=== PATIENT | male | born 1975 | race Two or more races ===

== ENCOUNTER 2024-04-01 20:50 | Emergency (ER) | payer OTHER ==
[~2024-04-01] VITALS: Ht 193 cm; Wt 100.0 kg
[2024-04-02] MEDS: TETANUS-DIPTH-ACEL PERTUSSIS 0.5ML SYR Tdap IM ONE (02:31)
[2024-04-02 02:42] LABS: Urine Bacteria MANY /hpf (None Seen); Urine Blood 1+ /uL (Negative); Urine Clarity Clear (Clear); Urine Color Yellow (Yellow); Urine Hyaline Cast FEW /lpf (0 - 2); Urine Mucus FEW (None Seen); Urine Protein, UAD 2+ (Negative); Urine Specific Gravity 1.029 (1.001-1.035); Urine Urobilinogen 4 mg/dL (Negative); Urine WBC 7 /hpf (0 - 3)
[2024-04-02 02:46] LABS: Amphetamine Screen, Urine Neg (NEGATIVE); Barbiturate Scree,Urine Pos (NEGATIVE); Benzodiazephine Screen, Urine Neg (NEGATIVE); Cocaine Screen, Urine Neg (NEGATIVE)
[2024-04-02 02:47] LABS: Cannabinoid Screen, Urine Neg (NEGATIVE); Opiate Scree,Urine Neg (NEGATIVE); Phencyclidine Screen, Urine Neg (NEGATIVE)
[2024-04-02] MEDS: InsuLIN REG 1unit/0.01ml Soln (100units/ml) IV ONE ×3 (03:02→14:56)
[2024-04-02 03:10] VITALS: PULSE 113; RESP 18; O2SAT 98
[2024-04-02] MEDS: VANCOMYCIN 1GM/200ML 200 ML IV ONE (03:25)
[2024-04-02] MEDS: ACETAMINOPHEN 325 MG TAB PO ONE (03:27)
[2024-04-02 03:32] LABS: Basophils # (auto) 0 10 ^3/uL (0-0.2); Basophils % (auto) 0.2 % (0.0-2.0); Eosinophils # (auto) 0 10 ^3/uL (0-0.8); Hemoglobin 15.6 g/dL (13.5-17.5); Lymphocytes # (auto) 1.4 10 ^3/uL (0.4-5.4); Lymphocytes % (auto) 8.2 % (10.0-50.0); Mean Corpuscular Hemoglobin 34.4 pg (28.0-32.0); Mean Corpuscular Hgb Conc. 33.2 g/dL (32.0-36.0); Mean Corpuscular Volume 103.6 fL (80.0-100.0); Monocytes # (auto) 1.5 10 ^3/uL (0-1.3); Monocytes % (auto) 8.9 % (0.0-12.0); Neutrophils # (auto) 13.9 10 ^3/uL (1.6-8.6); Neutrophils % (auto) 82.7 % (37.0-80.0); Nucleated Red Blood Cells % 0.1 %; Red Blood Cells 4.54 10^6/uL (4.5-5.90); Red Cell Distribution Width 13.4 % (11.8-14.3); White Blood Cell 16.7 10^3/uL (4.4-10.8)
[2024-04-02 03:43] LABS: Alanine Aminotransferase 92 U/L (7-40); Albumin 4.3 g/dL (3.2-4.8); Alkaline Phosphatase 172 U/L (46-116); Anion Gap 10 (5-15); Aspartate Aminotransferase 106 U/L (13-40); BUN/Creatinine Ratio 9.2 (10.0-20.0); Blood Urea Nitrogen 12 mg/dL (9-23); Calcium 9.5 mg/dL (8.7-10.4); Carbon Dioxide 23 mmol/L (20-30); Chloride 95 mmol/L (98-107); Magnesium 1.8 mg/dL (1.6-2.6); Sodium 128 mmol/L (136-145)
[2024-04-02 03:44] LABS: Bilirubin, Total 0.9 mg/dL (0.2-1.0); Total Protein 8.1 g/dL (5.7-8.2)
[2024-04-02 03:45] LABS: INR 1.05 (0.9-1.15); Partial Thromboplastin Time 27.5 SEC (24.5-34.5); Prothrombin Time 11.1 sec (9.3-11.8)
[2024-04-02 03:47] LABS: Lactic Acid w/Reflex 2.3 mmol/L (0.4-2.0)
[2024-04-02 03:48] LABS: Glucose 454 mg/dL (74-106)
[2024-04-02 03:59] LABS: Blood Alcohol < 3.0 mg/dL (<10)
[2024-04-02] MEDS: PIPERACILLIN-TAZOB 3.375GM 100 ML IV SCH (05:44)
[2024-04-02] MEDS ORDERED: VANCOMYCIN PER PHARMACY 0 MG IV SCH (08:15)
[2024-04-02] MEDS ORDERED: VANCOMYCIN 1GM/200ML 200 ML IV SCH (10:00)
[2024-04-02 11:00] VITALS: PULSE 98; RESP 20; O2SAT 93
[2024-04-02] MEDS: MORPHINE SULFATE 4 MG/ML SYR/VIAL IV ONE (12:19)
[2024-04-02] MEDS: ONDANSETRON HCL 4 MG/2 ML VIAL IV ONE (12:19)
[2024-04-02] MEDS ORDERED: VANCOMYCIN 750mg/150ml 150 ML IV SCH (15:00)
[2024-04-02 15:13] VITALS: BP 130/80; PULSE 105; RESP 20; TEMP 97.7; O2SAT 93
== END 2024-04-02 15:22 | disposition short-term general hospital (02) ==
LOC: ER 20:50
DX: N50.812 Left testicular pain (principal); N50.811 Right testicular pain; L98.9 Disorder of the skin and subcutaneous tissue, unspecified; E11.9 Type 2 diabetes mellitus without complications
CPT/HCPCS: 36415; 73630; 76870; 80053; 80307; 80320; 81001; 83605; 83735; 84484; 85025; 85610; 85730; 87040; 87086; 90471; 90715; 96365; 96366; 96367; 96375; 96376; 99285; J1815; J2270; J2405; J2543; J3370

== ENCOUNTER 2025-05-22 11:48 | Emergency (ER) | payer OTHER, MEDICAID ==
[~2025-05-22] VITALS: Ht 193 cm; Wt 150.0 kg
[2025-05-22 12:15] VITALS: PULSE 109; RESP 20; O2SAT 93
--- NOTE | 2025-05-22 12:26 | ED.PDOC ---
HPI (NEURO) HPI Comments HPI: 49 year old male presents to the emergency department with a chief complaint of seizures onset today (05/22/25). Per EMS, patient was at a Day Care ceremony, was standing, began experiencing seizure, was held my siblings, assisted to the ground. Upon EMS arrival, blood glucose was 61, oral glucose was given BS was 62, 2nd dose oral glucose was given in route to ED, BS was 51. Patient had 40 units insulin this morning, did not have breakfast. PMHx DM, HTN, seizures. Denies headache, dizziness, nausea, vomiting, diarrhea, head injury, chest pain, shortness of breath. No other symptoms or modifying factors present at this time. Patient has history of seizure disorder and also on seizure medications. States compliance with his medications. Initial Vitals BP: 119/62 HR: 109 RR:20 O2 Sat: 93% Temp: Past Medical history: HTN, DM, seizure Past Surgical history: Denies Medications: Metformin, insulin, Phenobarbitone Social History: Denies smoking, ETOH, and drug use. Allergies: NKDA HPI: Poor Historian. REVIEW OF SYSTEMS: CONSTITUTIONAL: Denies acute: fever, diaphoresis, chills, HEAD: Denies acute: headache, photophobia Eyes: Denies acute: Double vision, vision loss, eye pain, eye discharge. EARS: Denies acute: tinnitus, hearing loss, ear discharge, ear pain, THROAT: Denies acute: sore throat, swelling, difficulty swallowing , pain with swallowing, change in voice. NECK: Denies acute: neck pain, neck swelling, stiff neck. HEART: Denies acute : chest pain, palpitations, LUNGS: Denies acute: SOB, wheezing, cough, hemoptysis ABDOMEN: Denies acute: abdominal pain, Nausea, Vomiting, diarrhea, melena , hematemesis, hematochezia SKIN: Denies acute: rash, redness, lesions, itchiness. EXTREMITIES: Denies acute: calf pain, numbness, tingling, weakness, denies pain in extremity. Denies acute: Low back pain. Neuro: Denies acute: focal neurological deficit, motor or sensory focal neurological deficit, confusion, dizziness, change in mental status, loss of bowel or bladder function, cauda equina like symptoms. : Denies acute: dysuria, hematuria, flank pain, increase in urinary frequency. PSYCH: Denies acute: hallucination, suicidal ideation, homicidal ideation. PHYSICAL EXAM: General: -----mild---acute distress, awake and alert. Head: normocephalic, atraumatic. Neck: supple, trachea is midline, no swelling. Throat: Normal phonation. Eyes:, no erythema, no purulent discharge, no proptosis, no icterus. Heart: regular rate, regular rhythm, no significant murmur appreciated. Lungs: no apparent respiratory distress, Able to speak in full sentences. No wheezing, no rhonchi, no crackles. No stridors Clear to auscultation bilaterally. Abdomen: non tender to palpation, non distended, soft, no guarding, no rebound, + bowel sounds. Obese Neuro: Awake, Alert, oriented to name, self, situation, follows commands GCS=15. Speech is normal. Skin: no petechia, no purpura, no cyanosis, non-pale, not jaundice. Lower extremities: --no - Pitting edema no deformity, no focal swelling, no calf TTP. Makes eye contact. moves all four extremities. Face: no apparent facial droop. PERRLA, EOM-I CN 2-12 are grossly intact, Pedal pulses are palpable. No nystagmus. No nuchal rigidity, Kernig's sign, Brudzinski's sign, no meningeal signs. ED COURSE: DISCLAIMER: This medical document was created using an electronic medical record system with voice recognition software and computerized dictation system. Although this document has been carefully reviewed, there might still be some phonetic and typographical errors. Occasional wrong-word or "sound-alike" substitutions may have occurred due to the inherent limitations of voice recognition software. These areas are purely typographical due to imperfections of the software programs and do not reflect any compromise in the patient's medical care. Please read the chart carefully and recognize, using context, where these substitutions have occurred. Chief Complaint: Hypoglycemia Time Seen by MD: 12:00 Reviewed Notes: Medications, Allergies Information Source: Patient, Emergency Med Personnel Mode of Arrival: Wheelchair Severity: Moderate Timing: Hours Duration: Since onset Prehospital treatment: Other (oral glucose) Seizure Quality: Tonic-clonic Seizure Location: Generalized Circumstances: Spontaneous Symptoms: None Before: Normal During: Awake After: Normal Mentation History of: DM, Hypertension, Seizure Disorder Modifying factors: Nothing Past Medical History PAST MEDICAL HISTORY: DM, HTN, Seizures Surgical History: Denies all surgeries Family History Family History: Reviewed,noncontributory to illness, No family hx of Cancer, No family hx of DM, No family hx of Heart sreedhar, No family hx of HTN, No family hx ofKidney sreedhar, No family hx of Liver sreedhar, No family hx of Lung sreedhar, No family hx of Stroke Social History Smoker: Non-Smoker Alcohol: Denies ETOH Use Drugs: Denies Drug Use Lives In: Home Was a procedure done? Was a procedure done?: No X-Ray, Labs, Meds, VS Vital Signs Date Time Temp Pulse Resp B/P (MAP) Pulse Ox O2 Delivery O2 Flow Rate FiO2 05/22/25 16:00 98.5 72 14 111/69 (83) 93 98.5 05/22/25 13:47 83 05/22/25 12:15 109 20 119/62 (81) 93 05/22/25 12:15 109 20 93 Room Air* 0 21 05/22/25 11:58 99.8 114 16 142/84 (103) 97 99.8 Lab Test 05/22/25 15:12 05/22/25 15:09 05/22/25 13:14 05/22/25 13:08 Range/Units POC Glucose 124 H 155 H 70-106 mg/dl Lactic Acid Level 2.0 0.4-2.0 mmol/L Troponin I High Sensitivity 15 8 </=54 ng/L Test 05/22/25 13:00 05/22/25 12:20 05/22/25 12:12 05/22/25 12:01 Range/Units Urine Color Light-yellow Yellow Urine Clarity Clear Clear Urine pH 6.0 5.0-9.0 Urine Specific [place] 1.022 1.001-1.035 Urine Protein Negative Negative Urine Ketones Negative Negative Urine Blood Negative Negative /uL Urine Nitrite Negative Negative Urine Bilirubin Negative Negative Urine Urobilinogen Normal Negative mg/dL Urine Leukocyte Esterase Trace Negative /uL Urine RBC 1 0 - 3 /hpf Urine Microscopic WBC 5 H 0-3 /HPF Urine Squamous Epithelial Cells Few <5 /hpf Urine Bacteria Few H None Seen /hpf Urine Hyaline Casts Few 0 - 2 /lpf Urine Mucus Few None Seen Urine Glucose 2+ H Normal mg/dL Lactic Acid Level 3.7 *H 0.4-2.0 mmol/L White Blood Count 6.8 4.4-10.8 10^3/uL Red Blood Count 4.91 4.5-5.90 10^6/uL Hemoglobin 17.2 13.5-17.5 g/dL Hematocrit 51.5 41.0-53.0 % Mean Corpuscular Volume 104.9 H 80.0-100.0 fL Mean Corpuscular Hemoglobin 35.1 H 28.0-32.0 pg Mean Corpuscular Hemoglobin Concent 33.5 32.0-36.0 g/dL Red Cell Distribution Width 13.6 11.8-14.3 % Platelet Count 243 140-450 10^3/uL Mean Platelet Volume 8.1 6.9-10.8 fL Neutrophils (%) (Auto) 49.0 37.0-80.0 % Lymphocytes (%) (Auto) 37.0 10.0-50.0 % Monocytes (%) (Auto) 11.2 0.0-12.0 % Eosinophils (%) (Auto) 2.3 0.0-7.0 % Basophils (%) (Auto) 0.5 0.0-2.0 % Neutrophils # (Auto) 3.4 1.6-8.6 10 ^3/uL Lymphocytes # (Auto) 2.5 0.4-5.4 10 ^3/uL Monocytes # (Auto) 0.8 0-1.3 10 ^3/uL Eosinophils # (Auto) 0.2 0-0.8 10 ^3/uL Basophils # (Auto) 0 0-0.2 10 ^3/uL Nucleated Red Blood Cells 0.2 % Sodium Level 142 136-145 mmol/L Potassium Level 3.9 3.5-5.1 mmol/L Chloride Level 109 H 98-107 mmol/L Carbon Dioxide Level 24 20-31 mmol/L Anion Gap 9 5-15 Blood Urea Nitrogen 15 9-23 mg/dL Creatinine 1.14 0.700-1.30 mg/dL Glomerular Filtration Rate Calc 78 >90 mL/min BUN/Creatinine Ratio 13.2 10.0-20.0 Serum Glucose 55 L 74-106 mg/dL Calcium Level 9.4 8.7-10.4 mg/dL Magnesium Level 2.1 1.6-2.6 mg/dL Total Bilirubin 0.3 0.2-1.0 mg/dL Aspartate Amino Transferase (AST) 31 13-40 U/L Alanine Aminotransferase (ALT) 29 7-40 U/L Alkaline Phosphatase 97 46-116 U/L Troponin I High Sensitivity 3 L </=54 ng/L Total Protein 7.6 5.7-8.2 g/dL Albumin 4.3 3.2-4.8 g/dL POC Glucose 53 L 70-106 mg/dl Current Medications Medications (Trade) Dose Ordered Sig/Batool Route Start Time Stop Time Status Last Admin Dextrose 50 ml ONCE ONCE IV 05/22/25 12:15 05/22/25 12:16 DC 05/22/25 12:31 Sodium Chloride 1,000 ml @ 1,000 mls/hr Q1H ONCE IV 05/22/25 12:15 05/22/25 13:14 DC 05/22/25 12:32 [place] [id number] Ph: [phone] DIAGNOSTIC IMAGING Diagnostic Imaging Report : [id number] Signed PATIENT: JAMISON HERNANDEZ ACCT: [id number] UNIT: [id number] : 1975 LOC: ER ROOM / BED: / AGE / SEX: 49 / M ADM STATUS: REG ER SERVICE 1203 ORDERING PHYSICIAN: MICAH RIVERA DO PROCEDURE(s): CXRP - CHEST PORTABLE REASON: seizure ORDER NUMBER(s): [id number], ACCESSION NUMBER(s): [id number] XY CHEST PORTABLE, HISTORY: seizure COMPARISON: None None TECHNICAL DATA: 1 view of the chest was obtained. FINDINGS: Lines and tubes: None Cardiomediastinal silhouette: normal Pulmonary vasculature: normal Lung expansion: normal Lung airspace: normal Lung interstitium: normal Pleura: normal Pneumothorax: no Bones: Unremarkable Other: no IMPRESSION: No acute intrathoracic abnormality. ATED BY: ABELINO CHIU MD DICTATED DATE/TIME: 05/22/25 1234 SIGNED BY: ABELINO CHIU MD SIGNED DATE/TIME: 05/22/25 1234 CC: Time of 1ST Reevaluation: 12:30 Reevaluation 1ST: Unchanged Time of 2ND Reevaluation: 16:49 (Still awaiting UA) Patient Education/Counseling: Diagnosis, Treatment Family Education/Counseling: No Family Present Departure 1 Departure Time of Disposition: 17:39 Impression: Primary Impression: Breakthrough seizure Additional Impressions: Hypoglycemic episode in patient with diabetes mellitus Seizure due to hypoglycemia Disposition: 01 HOME / SELF CARE / HOMELESS Condition: Stable Additional Instructions: Additional instructions: You MUST follow-up with your primary care/family doctor in 1 to 2 days. If you are unable to see your primary care/family doctor, please return to our emergency room for re-assessment and re-evaluation in 1 to 2 days. Return to the emergency room here in our facility or to the nearest ER [facility] if your symptoms change or worsen. CONSULTATIONS: you MUST Follow-up for consultation as soon as possible with: -neurology and cold header in 1-2 days. Please call for appointment. You MUST call the consultants office yourself to make an appointment. You may need to arrange that through your insurance and/or your primary/family doctor. If you are unable to see the image consultant in 1 to 2 days, you must return to our emergency room (or any other ER of your choice) for re-assessment and re- evaluation. Adequate fluid hydration. Monitoring blood sugar at home closely. e-Prescriptions Nitrofurantoin Monohydrate Mac (Macrobid) 100 Mg Cap 100 MG PO BID for 7 Days, #14 CAP Prov: MICAH RIVERA DO 05/22/25 Discharged With: Self Critical Care Note Critical Care Time?: No I personally scribed for MICAH RIVERA DO ([email or web address]) on 05/22/25 at 12:26. Electronically submitted by Veronica Estrella ([email or web address]). I personally scribed for MICAH RIVERA DO ([email or web address]) on 05/22/25 at 12:43. Electronically submitted by Veronica Estrella ([email or web address]). MICAH RIVERA DO May 22, 2025 12:26
[2025-05-22] MEDS: DEXTROSE (50%) 50ML SYRG IV ONE (12:31)
[2025-05-22] MEDS: SODIUM CHLORIDE 0.9% 1,000 ML IV ONE (12:32)
--- NOTE | 2025-05-22 12:36 | DVH ---
XY CHEST PORTABLE, HISTORY: seizure COMPARISON: None None TECHNICAL DATA: 1 view of the chest was obtained. FINDINGS: Lines and tubes: None Cardiomediastinal silhouette: normal Pulmonary vasculature: normal Lung expansion: normal Lung airspace: normal Lung interstitium: normal Pleura: normal Pneumothorax: no Bones: Unremarkable Other: no IMPRESSION: No acute intrathoracic abnormality.
[2025-05-22 12:47] LABS: Hemoglobin 17.2 g/dL (13.5-17.5)
[2025-05-22 12:50] LABS: Hematocrit 51.5 % (41.0-53.0); Mean Corpuscular Hemoglobin 35.1 pg (28.0-32.0); Mean Corpuscular Volume 104.9 fL (80.0-100.0); Nucleated Red Blood Cells % 0.2 %
[2025-05-22 13:05] LABS: Lactic Acid w/Reflex 3.7 mmol/L (0.4-2.0)
[2025-05-22 13:06] LABS: Alanine Aminotransferase 29 U/L (7-40); Albumin 4.3 g/dL (3.2-4.8); Alkaline Phosphatase 97 U/L (46-116); Anion Gap 9 (5-15); BUN/Creatinine Ratio 13.2 (10.0-20.0); Bilirubin, Total 0.3 mg/dL (0.2-1.0); Blood Urea Nitrogen 15 mg/dL (9-23); Calcium 9.4 mg/dL (8.7-10.4); Carbon Dioxide 24 mmol/L (20-31); Magnesium 2.1 mg/dL (1.6-2.6); Potassium 3.9 mmol/L (3.5-5.1); Sodium 142 mmol/L (136-145); Total Protein 7.6 g/dL (5.7-8.2)
[2025-05-22 13:09] LABS: Chloride 109 mmol/L (98-107); Glucose 55 mg/dL (74-106)
[2025-05-22 16:00] VITALS: TEMP 98.5
[2025-05-22 16:57] LABS: Urine Protein, UAD Negative (Negative)
[2025-05-22] MEDS ORDERED: NITR-87 PO (17:41)
[2025-05-22 18:00] VITALS: BP 149/80; PULSE 71; RESP 14; O2SAT 93
--- NOTE | 2025-05-25 08:07 | ECG ---
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
== END 2025-05-22 18:25 | disposition home or self-care (01) ==
LOC: EDBD 11:48 → ER 11:48
DX: G40.909 Epilepsy, unspecified, not intractable, without status epilepticus (principal); E11.649 Type 2 diabetes mellitus with hypoglycemia without coma; I10 Essential (primary) hypertension
CPT/HCPCS: 36415; 71045; 80053; 81001; 82947; 83605; 83735; 84484; 85025; 93005; 96361; 96374; 99285; J7030; J7042; 82962

== ENCOUNTER 2025-08-20 14:07 | Emergency (ER) | payer MEDICAID, OTHER ==
[~2025-08-20] VITALS: Ht 177.8 cm; Wt 109.0 kg
[~2025-08-20 14:07] MED LIST: NITR-87 PO
--- NOTE | 2025-08-20 14:23 | ED.PDOC ---
History of Present Illness HPI Comments 50 y/o M, BIBA, with PMHx of DM ,HTN, and seizures presents to the ED for CC of s/p seizure. EMS reports, patient is coming from home where he had a witnessed seizure by family. Per EMS, family comments that patient has been non-complaint with all medications. Upon arrival to the ED, patient is A&Ox4 and all VSS. Patient denies nausea, vomiting, headache, incontinence, or oral trauma. Time Seen by MD: 14:15 Primary Care Provider: UNKNOWN Reviewed Notes: Nurses Notes, Operations Forester Notes, Medications, Allergies Allergies: Coded Allergies: Gabapentin (Verified Allergy, Unknown, 05/22/25) Home Meds Active Scripts Nitrofurantoin Monohydrate Mac (Macrobid) 100 Mg Cap, 100 MG PO BID for 7 Days, #14 CAP Prov:MICAH RIVERA DO 05/22/25 Information Source: Patient, Emergency Med Personnel Mode of Arrival: EMS Severity: Moderate Timing: Minutes Duration: Minutes Prehospital treatment: None Past Medical History PAST MEDICAL HISTORY: DM, HTN, Seizures Surgical History: Denies all surgeries Family History Family History: Reviewed,noncontributory to illness, No family hx of Cancer, No family hx of DM, No family hx of Heart sreedhar, No family hx of HTN, No family hx ofKidney sreedhar, No family hx of Liver sreedhar, No family hx of Lung sreedhar, No family hx of Stroke Social History Smoker: Non-Smoker Alcohol: Denies ETOH Use Drugs: Denies Drug Use Lives In: Home Constitutional: denies: chills, diaphoresis, fatigue, fever, malaise, sweats, weakness, others EENTM: denies: blurred vision, double vision, ear bleeding, ear discharge, ear drainage, ear pain, ear ringing, eye pain, eye redness, hearing loss, mouth pain, mouth swelling, nasal discharge, nose bleeding, nose congestion, nose pain, photophobia, tearing, throat pain, throat swelling, voice changes, others Respiratory: denies: cough, hemoptysis, orthopnea, SOB at rest, shortness of breath, SOB with excertion, stridor, wheezing, others Cardiovascular: denies: chest pain, dizzy spells, diaphoresis, Dyspnea on exertion, edema, irregular heart beat, left arm pain, lightheadedness, palpitations, PND, syncope, others Gastrointestinal: denies: abdomen distended, abdominal pain, blood streaked bowels, constipated, diarrhea, dysphagia, difficulty swallowing, hematemesis, melena, nausea, poor appetite, poor fluid intake, rectal bleeding, rectal pain, vomiting, others Genitourinary: denies: burning, dysuria, flank pain, frequency, hematuria, incontinence, penile discharge, penile sore, pain, testicle pain, testicle swelling, urgency, others Neurological: reports: seizure; denies: dizziness, fainting, headache, left sided numbness, left sided weakness, numbness, paresthesia, pre-existing deficit, right sided numbness, right sided weakness, speech problems, tingling, tremors, weakness, others Musculoskeletal: denies: back pain, gout, joint pain, joint swelling, muscle pain, muscle stiffness, neck pain, others Integumetry: denies: bruises, change in color, change in hair/nails, dryness, laceration, lesions, lumps, rash, wounds, others Allergic/Immunocompromised: denies: Difficulty Healing, Frequent Infections, Hives, Itching, others Hematologic/Lymphatic: denies: anemia, blood clots, easy bleeding, easy bruising, swollen glands, others Endocrine: denies: excessive hunger, excessive sweating, excessive thirst, excessive urination, flushing, intolerance to cold, intolerance to heat, unexplained weight gain, unexplained weight loss, others Psychiatric: denies: anxiety, bipolar disorder, depression, hopeless, panic disorder, schizophrenia, sleepless, suicidal, others All Other Systems: Reviewed and Negative Physical Exam General Appearance: No Apparent Distress, Obese HEENT: Normal ENT Inspection, Pharynx Normal Neck: Full Range of Motion, Non-Tender, Normal, Normal Inspection Respiratory: Chest Non-Tender, Lungs Clear, No Accessory Muscle Use, No Respiratory Distress, Normal Breath Sounds Cardiovascular: No Edema, No Murmur, No Gallop, Normal Peripheral Pulses, Regular Rate/Rhythm Breast Exam: Deferred Gastrointestinal: No Organomegaly, Non Tender, No Pulsatile Mass, Normal Bowel Sounds, Soft Genitalia: Deferred Pelvic: Deferred Rectal: Deferred Extremities: No calf tenderness, Normal capillary refill, Normal inspection, Normal range of motion, Non-tender, No pedal edema Musculoskeletal : Apperance: Normal Neurologic: Alert, clinical research scientist II-XII nml as Tested, No Motor Deficits, Normal Affect, Normal Mood, No Sensory Deficits Cerebellar Function: Normal Reflexes: Normal Skin: Dry, Normal Color, Warm Lymphatic: No Adenopathy Was a procedure done? Was a procedure done?: No Differential Dx Considerations may include: epilepsy breakthrough, epilepsy status, medical non-compliance X-Ray, Labs, Meds, VS Vital Signs Date Time Temp Pulse Resp B/P (MAP) Pulse Ox O2 Delivery O2 Flow Rate FiO2 08/20/25 17:16 67 18 97 Room Air* 0 21 08/20/25 17:12 97.6 79 18 127/83 (98) 97 97.6 08/20/25 14:13 98.8 104 16 135/88 96 98.8 Lab Test 08/20/25 14:38 Range/Units White Blood Count 8.8 4.4-10.8 10^3/uL Red Blood Count 5.20 4.5-5.90 10^6/uL Hemoglobin 18.3 H 13.5-17.5 g/dL Hematocrit 55.3 H 41.0-53.0 % Mean Corpuscular Volume 106.3 H 80.0-100.0 fL Mean Corpuscular Hemoglobin 35.3 H 28.0-32.0 pg Mean Corpuscular Hemoglobin Concent 33.2 32.0-36.0 g/dL Red Cell Distribution Width 13.6 11.8-14.3 % Platelet Count 301 140-450 10^3/uL Mean Platelet Volume 8.5 6.9-10.8 fL Neutrophils (%) (Auto) 65.4 37.0-80.0 % Lymphocytes (%) (Auto) 24.8 10.0-50.0 % Monocytes (%) (Auto) 6.9 0.0-12.0 % Eosinophils (%) (Auto) 2.4 0.0-7.0 % Basophils (%) (Auto) 0.5 0.0-2.0 % Neutrophils # (Auto) 5.7 1.6-8.6 10 ^3/uL Lymphocytes # (Auto) 2.2 0.4-5.4 10 ^3/uL Monocytes # (Auto) 0.6 0-1.3 10 ^3/uL Eosinophils # (Auto) 0.2 0-0.8 10 ^3/uL Basophils # (Auto) 0 0-0.2 10 ^3/uL Nucleated Red Blood Cells 0.2 % Sodium Level 137 136-145 mmol/L Potassium Level 4.7 3.5-5.1 mmol/L Chloride Level 99 98-107 mmol/L Carbon Dioxide Level 22 20-31 mmol/L Anion Gap 16 H 5-15 Blood Urea Nitrogen 11 9-23 mg/dL Creatinine 1.41 H 0.700-1.30 mg/dL Glomerular Filtration Rate Calc 60 >90 mL/min BUN/Creatinine Ratio 7.8 L 10.0-20.0 Serum Glucose 409 *H 74-106 mg/dL Calcium Level 9.4 8.7-10.4 mg/dL Troponin I High Sensitivity 3 L </=54 ng/L Current Medications Medications (Trade) Dose Ordered Sig/Batool Route Start Time Stop Time Status Last Admin Levetiracetam 100 ml @ 400 mls/hr ONCE ONCE IV 08/20/25 14:30 08/20/25 14:44 DC 08/20/25 14:30 Time of 1ST Reevaluation: 14:45 Reevaluation 1ST: Unchanged Patient Education/Counseling: Diagnosis, Treatment Family Education/Counseling: No Family Present SEPSIS Sepsis Screen Physician Orders Electrocardigram (08/20/25 14:21) Chest Portable (08/20/25 14:22) Urinalysis (08/20/25 14:22) Insulin R (Human) (Insulin R) (08/20/25 18:00) Vital Signs Date Time Temp Pulse Resp B/P (MAP) Pulse Ox O2 Delivery O2 Flow Rate FiO2 08/20/25 17:16 67 18 97 Room Air* 0 21 08/20/25 17:12 97.6 79 18 127/83 (98) 97 97.6 08/20/25 14:13 98.8 104 16 135/88 96 98.8 Laboratory Tests Test 08/20/25 14:38 White Blood Count 8.8 10^3/uL (4.4-10.8) Medications Medications Dose Ordered Sig/Batool Route Start Time Stop Time Status Last Admin Dose Admin Levetiracetam 100 ml @ 400 mls/hr ONCE ONCE IV 08/20/25 14:30 08/20/25 14:44 DC 08/20/25 14:30 Departure 1 Departure Time of Disposition: 17:52 (Patient likely with a breakthrough seizure. We will discharge patient home with outpatient follow up) Impression: Primary Impression: Breakthrough seizure Disposition: HOME / SELF CARE / HOMELESS Condition: Stable Additional Instructions: You had a breakthrough seizure today. It is important to take your seizure medication. You should stay well rested and well hydrated. You should follow up with your regular doctor within 1 week. If your symptoms worsen or you have any other concerns then please return to the emergency room. Discharged With: Self Critical Care Note Critical Care Time?: No Stability Stability form required: No Heart Score Heart Score: Heart Score Response (Comments) Value History N/A 0 EKG N/A 0 Age N/A 0 Risk Factors N/A 0 Troponin N/A 0 Total 0 I personally scribed for CIARA WALKER MD ([email or web address]) on 08/20/25 at 14:23. Electronically submitted by Kristina Young ([email or web address]). CIARA WALKER MD Aug 20, 2025 14:23
[2025-08-20] MEDS: levETIRAcetam 1000 mg/100ml 100 ML IV ONE (14:30)
[2025-08-20 14:50] LABS: Hematocrit 55.3 % (41.0-53.0); Hemoglobin 18.3 g/dL (13.5-17.5); Mean Corpuscular Hemoglobin 35.3 pg (28.0-32.0); Mean Corpuscular Volume 106.3 fL (80.0-100.0); Nucleated Red Blood Cells % 0.2 %
[2025-08-20 15:00] LABS: Chloride 99 mmol/L (98-107); Potassium 4.7 mmol/L (3.5-5.1); Sodium 137 mmol/L (136-145)
[2025-08-20 15:01] LABS: Anion Gap 16 (5-15); Carbon Dioxide 22 mmol/L (20-31)
[2025-08-20 15:02] LABS: Calcium 9.4 mg/dL (8.7-10.4)
[2025-08-20 15:06] LABS: BUN/Creatinine Ratio 7.8 (10.0-20.0); Blood Urea Nitrogen 11 mg/dL (9-23)
--- NOTE | 2025-08-20 15:09 | DVH ---
CHEST RADIOGRAPH Indication: weakness Technique: Single frontal view of the chest was obtained Comparison: XY CHEST PORTABLE on DOS: 05/22/25 FINDINGS: Lines and Tubes: None Lungs: No focal consolidation. Pleura: No effusion. No pneumothorax. Cardiomediastinal contours: Unremarkable Bones: No acute osseous abnormality. IMPRESSION: 1. No acute cardiopulmonary disease. 2. No significant change from 05/22/2025
[2025-08-20 15:11] LABS: Glucose 409 mg/dL (74-106)
[2025-08-20 17:16] VITALS: PULSE 67; RESP 18; O2SAT 97
[2025-08-20] MEDS: InsuLIN REG 1unit/0.01ml Soln (100units/ml) IV ONE (18:00)
[2025-08-20 19:23] VITALS: BP 113/72; PULSE 91; RESP 18; TEMP 97.6; O2SAT 99
--- NOTE | 2025-08-24 09:57 | ECG ---
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
== END 2025-08-20 19:23 | disposition home or self-care (01) ==
LOC: EDUNIT# 14:07 → ER 14:07 → EDBD 14:07 → ER 19:23
DX: G40.909 Epilepsy, unspecified, not intractable, without status epilepticus (principal); I10 Essential (primary) hypertension; E11.9 Type 2 diabetes mellitus without complications; Z79.899 Other long term (current) drug therapy; Z88.8 Allergy status to other drugs, medicaments and biological substances
CPT/HCPCS: 36415; 71045; 80048; 82947; 84484; 85025; 93005; 96374; 96375; 99285; J1815; J1953; 82962